=== PATIENT | male | born 1960 | race Caucasian/White ===

== ENCOUNTER → 2024-07-31 06:47 | Outpatient (REF) | payer OTHER, SELFPAY | LOC: RCS 06:47 | PROVIDERS: ATTENDING PHYSICIAN Internal Medicine Cardiovascular Disease; FAMILY PHYSICIAN Family Medicine | DX: I25.10 Atherosclerotic heart disease of native coronary artery without angina pectoris (principal); R07.89 Other chest pain; Z95.5 Presence of coronary angioplasty implant and graft; D68.51 Activated protein C resistance | CPT/HCPCS: 78452; 93017; A9500 ==

== ENCOUNTER → 2024-09-14 07:32 | Outpatient (REF) | payer OTHER, SELFPAY | LOC: RAD 07:32 | PROVIDERS: ATTENDING PHYSICIAN Surgery Vascular Surgery; FAMILY PHYSICIAN Family Medicine | DX: I65.23 Occlusion and stenosis of bilateral carotid arteries (principal) | CPT/HCPCS: 93880 ==

== ENCOUNTER 2025-08-05 06:22 | Day surgery (SDC) | payer OTHER, SELFPAY | END 2025-08-05 11:57 | disposition home or self-care (01) | LOC: GI 06:22 | PROVIDERS: ATTENDING PHYSICIAN Internal Medicine Gastroenterology | DX: Z12.11 Encounter for screening for malignant neoplasm of colon (principal); K64.8 Other hemorrhoids; Q43.8 Other specified congenital malformations of intestine; K31.89 Other diseases of stomach and duodenum; K31.7 Polyp of stomach and duodenum; K29.70 Gastritis, unspecified, without bleeding; K22.89 Other specified disease of esophagus; Z86.0100 Personal history of colon polyps, unspecified | CPT/HCPCS: 43239; G0105; 88305; 88342 ==

== ENCOUNTER 2025-09-18 06:33 | Outpatient (RCR) | payer OTHER, SELFPAY | END 2025-09-18 23:59 | disposition home or self-care (01) | LOC: ROT 06:33 | PROVIDERS: ATTENDING PHYSICIAN Nurse Practitioner Adult Health; FAMILY PHYSICIAN Family Medicine | DX: G20.A2 Parkinson's disease without dyskinesia, with fluctuations (principal); Z73.6 Limitation of activities due to disability; R26.89 Other abnormalities of gait and mobility; R29.6 Repeated falls | CPT/HCPCS: 97163; 97530 ==